=== PATIENT | male | born 1985 | race Caucasian/White ===

== ENCOUNTER 2024-11-29 08:24 | Day surgery (SDC) | payer OTHER ==
[~2024-11-29] VITALS: Ht 185.4 cm; Wt 80.4 kg
[2024-11-29] VITALS (7 sets, daily range): BP systolic 107–136; BP diastolic 65–96
[~2024-11-29 08:24] MED LIST: CHANTIX0.5 MG PO; GABA600 PO; SILD50TA PO
[2024-11-29] MEDS ORDERED: Ampicillin Sod/Sulbactam Sod 3 GM in NS 100 ML IV SCH (09:40)
--- NOTE | 2024-11-29 10:19 | NUR ---
History, Chart, Medications and Allergies reviewed before start of procedure. Patient up to Ambulate independently. Gait steady. Pre-Op teaching done. Pt verbalizes understanding. Patient confirms NPO status and agrees with scheduled surgery. Patient States Post-Procedure ride home has been arranged.
[2024-11-29] MEDS ORDERED: Bupivacaine 0.5% W/EPI 1:200000 SDV 30 ML Vial ONE (10:56)
[2024-11-29] MEDS ORDERED: Ondansetron HCl 2 MG / ML 2ML Vial ONE (10:58)
[2024-11-29] MEDS ORDERED: Dexamethasone Sod Phos 10 MG/ML 1ML VIAL ONE (10:58)
[2024-11-29] MEDS ORDERED: FentaNYL Citrate 50 MCG/ML 2 ML Injection ONE (10:58)
[2024-11-29] MEDS ORDERED: Midazolam HCl 1MG / ML 2ML Vial ONE (10:58)
[2024-11-29] MEDS ORDERED: Prochlorperazine Edisylate 10 mg Vial IV PRN (11:30)
[2024-11-29] MEDS ORDERED: FentaNYL Citrate 50 MCG/ML 2 ML Injection IV PRN ×2 (11:30)
[2024-11-29] MEDS ORDERED: HYDROmorphone HCl/Pf 1MG SYR IV PRN (11:30)
[2024-11-29] MEDS ORDERED: Ondansetron HCl 2 MG / ML 2ML Vial IV PRN (11:30)
[2024-11-29] MEDS ORDERED: Ketorolac Tromethamine 15mg Vial IV PRN (12:15)
[2024-11-29] MEDS ORDERED: OxyCODONE 5 mg/Acetamin 325 mg TABLET PO PRN (12:30)
[2024-11-29] MEDS ORDERED: Ketorolac Tromethamine 30mg Vial ONE (12:32)
== END 2024-11-29 23:00 | disposition home or self-care (01) ==
LOC: ORSCMMR 08:24 → ORD 10:00 → ORSCMMR 23:00
PROVIDERS: Surgery
PROC: 0DBQXZX Excision of Anus, External Approach, Diagnostic (ICD-10-PCS; principal; 2024-11-29 10:00)
DX: D23.5 Other benign neoplasm of skin of trunk (principal); K62.9 Disease of anus and rectum, unspecified; K64.0 First degree hemorrhoids; L29.0 Pruritus ani; F43.10 Post-traumatic stress disorder, unspecified; F32.A Depression, unspecified; K76.0 Fatty (change of) liver, not elsewhere classified; F17.210 Nicotine dependence, cigarettes, uncomplicated; I10 Essential (primary) hypertension; Z79.899 Other long term (current) drug therapy
CPT/HCPCS: 88305; A9270; J0295; J1100; J1885; J2250; J2405; J2704; J3010; J7120

== ENCOUNTER 2024-12-08 14:09 | Emergency (ER) | payer OTHER ==
[~2024-12-08] VITALS: Ht 185.4 cm; Wt 79.4 kg
[2024-12-08 14:26] VITALS: BP 144/98
== END 2024-12-08 14:30 | disposition home or self-care (01) ==
LOC: ER 14:09
DX: T81.31XA Disruption of external operation (surgical) wound, not elsewhere classified, initial encounter (principal); Z79.899 Other long term (current) drug therapy; Z59.89 Other problems related to housing and economic circumstances
CPT/HCPCS: 99282